=== PATIENT | male | born 1990 ===

== ENCOUNTER 2025-09-14 13:18 | Outpatient (CLI) | payer MEDICAID, SELFPAY ==
[2025-09-14 14:33] LABS: Abs Immature Grans 0.01 10^3/uL (0.0-0.06); HCT 49.6 % (40.0-50.0); HGB 17.2 g/dL (13.5-17.5); Immature Grans % 0.2 %; MCH 30.3 pg (27.0-33.0); MCHC 34.7 % (32.0-36.0); MCV 88 fL (80-95); MPV 10.4 fL (8.0-11.0); Platelet Count 182 10^3/uL (130-400); RBC 5.67 10^6/uL (4.36-5.78); RDW 13.9 % (11.8-14.1); RDW-SD 43.8 fL; WBC 5.23 10^3/uL (4.4-10.8)
[2025-09-14 14:46] LABS: Cannabinoids THC Negative (Negative); METHADONE URINE SCREEN Negative (Negative)
[2025-09-14 15:26] LABS: ALT 22 U/L (16-63); AST 14 U/L (15-37); Albumin 4.5 g/dL (3.4-5.0); Alkaline Phosphatase 87 U/L (46-116); Anion Gap 8.0 mmol/L (3-11); BUN 11 mg/dL (7-18); Bilirubin, Total 1.9 mg/dL (0.2-1.0); CO2 32.0 mmol/L (21.0-32.0); Calcium 9.7 mg/dL (8.5-10.1); Chloride 102 mmol/L (98-107); Estimated GFR 116.90 (mL/min/1.73m2); Glucose 88 mg/dL (74-106); Potassium 4.3 mmol/L (3.5-5.1); Sodium 142 mmol/L (136-145); Total Protein 8.6 g/dL (6.4-8.2)
[2025-09-15 09:16] LABS: HBs Antibody, Quant 416.6 mIU/mL (See Note); Hepatitis B Surface Ab Positive (See Note)
[2025-09-15 10:14] LABS: Hep A Total Ab w Rflx IgM Positive (Negative); Hep B Core Antibody Negative (Negative)
[2025-09-15 10:19] LABS: Hepatitis C Ab w Rflx HCV PCR Reactive (Negative)
[2025-09-15 10:20] LABS: HIV-1/2 Ag & Ab Screen Negative (Negative)
[2025-09-15 10:53] LABS: Syphilis Serology (RPR) Negative (Negative)
[2025-09-15 12:50] LABS: Chlamydia Result Negative (Negative); GC Result Negative (Negative)
[2025-09-16 14:39] LABS: TB Interpretation Negative (Negative); TB1 Ag minus Nil 0.00 IU/mL; TB2 Ag minus Nil 0.00 IU/mL
== END 2025-09-14 13:19 | disposition home or self-care (01) ==
PROVIDERS: Visit Provider Nurse Practitioner Family
DX: Z72.89 Other problems related to lifestyle (principal); Z11.59 Encounter for screening for other viral diseases; Z11.4 Encounter for screening for human immunodeficiency virus [HIV]; F11.20 Opioid dependence, uncomplicated
CPT/HCPCS: 36415; 80053; 80307; 80348; 86704; 86706; 86709; 86803; 87389; 87491; 87522; 87591; 85025; 86480; 86592; 87350